=== PATIENT | female | born 1980 | race African-American/Black ===

== ENCOUNTER 2016-12-17 11:44 | Emergency (ER) | payer BC ==
[~2016-12-17] VITALS: Ht 177.8 cm; Wt 127.0 kg
[~2016-12-17 11:44] MED LIST: METF500T4 PO; [UNRECOGNIZED DRUG - CODE] IV
[2016-12-17 13:00] VITALS: BP 138/75
[2016-12-17] MEDS ORDERED: CEFTRIAXONE IM 250 MG VIAL. IM ONE (13:45)
[2016-12-17] MEDS ORDERED: AZITHROMYCIN 250 MG TABLET PO ONE (13:45)
[2016-12-17] MEDS ORDERED: METRONIDAZOLE 500 MG TABLET. PO ONE (13:45)
[2016-12-17 13:59] LABS: NEG OBC UR NEG; POS OBC UR POS
[2016-12-17 14:00] LABS: BILIRUBIN,URINE NEGATIVE (NEG); GLUCOSE,URINE >=1000 mg/dL (NEG); NITRITE,URINE NEGATIVE (NEG); PROTEIN,URINE NEGATIVE (NEG-TRACE); UROBILINOGEN,URINE 0.2 mg/dL (0.2 mg/dL)
[2016-12-17 14:28] LABS: BACTERIA,URINE FEW /HPF (0-FEW); SQUAMOUS EPITHELIAL CELL,UR MOD /LPF; TRICHOMONAS,URINE PRESENT; WBC,URINE >40 /HPF (0-4)
[2016-12-17] MEDS ORDERED: SULF1TAB24 PO (14:37)
[2016-12-17] MEDS ORDERED: METR500T PO (14:37)
[2016-12-17] MEDS ORDERED: FLUC150T2 PO (14:37)
--- NOTE | 2016-12-17 14:37 | PHYS DOC ---
Past Medical History Past Medical History: Diabetes-Type II, Hypertension, Other Additional Past Medical Histor: YEAST INFECTIONS Past Surgical History: Alcohol Use: None Drug Use: None Adult General Chief Complaint Chief Complaint: VAGINAL PROBLEM HPI HPI Patient is a 36 year old female who presents with vaginal discharge for three days with dysuria and concerns for STD. Patient would like to be tested and treated. Review of Systems Review of Systems Constitutional: Denies fever or chills [] Eyes: Denies change in visual acuity, redness, or eye pain [] HENT: Denies nasal congestion or sore throat [] Respiratory: Denies cough or shortness of breath [] Cardiovascular: No additional information not addressed in HPI [] GI: Denies abdominal pain, nausea, vomiting, bloody stools or diarrhea [] : Dysuria and vaginal discharge Musculoskeletal: Denies back pain or joint pain [] Integument: Denies rash or skin lesions [] Neurologic: Denies headache, focal weakness or sensory changes [] Endocrine: Denies polyuria or polydipsia [] Current Medications Current Medications Current Medications Medications (Trade) Dose Ordered Sig/Desirae Start Time Stop Time Status Last Admin Dose Admin Azithromycin (Zithromax) 1,000 mg 1X ONCE 12/17/16 13:45 12/17/16 13:52 DC 12/17/16 13:59 1,000 MG Ceftriaxone Sodium (Rocephin Im) 250 mg 1X ONCE 12/17/16 13:45 12/17/16 13:52 DC 12/17/16 14:01 250 MG Metronidazole (Flagyl) 2,000 mg 1X ONCE 12/17/16 13:45 12/17/16 13:52 DC 12/17/16 13:59 2,000 MG Allergies Allergies Allergies Coded Allergies Type Severity Reaction Last Updated Verified No Known Drug Allergies 07/24/14 No Physical Exam Physical Exam Constitutional: Well developed, well nourished, no acute distress, non-toxic appearance. [] HENT: Normocephalic, atraumatic, bilateral external ears normal, oropharynx moist, no oral exudates, nose normal. [] Eyes: PERRLA, EOMI, conjunctiva normal, no discharge. [] Neck: Normal range of motion, no tenderness, supple, no stridor. [] Cardiovascular:Heart rate regular rhythm, no murmur [] Lungs & Thorax: Bilateral breath sounds clear to auscultation [] Abdomen: Bowel sounds normal, soft, no tenderness, no masses, no pulsatile masses. [] External pelvic appears normal, cervix is closed no CMT, moderate cervical erythema is noted as well as vaginal vault appears erythematous. There is greenish discharge in the vaginal vault. No adnexal tenderness. Skin: Warm, dry, no erythema, no rash. [] Back: No tenderness, no CVA tenderness. [] Extremities: No tenderness, no cyanosis, no clubbing, ROM intact, no edema. [] Neurologic: Alert and oriented X 3, normal motor function, normal sensory function, no focal deficits noted. [] Psychologic: Affect normal, judgement normal, mood normal. [] Current Patient Data Vital Signs Vital Signs Date Time Temp Pulse Resp B/P Pulse Ox O2 Delivery O2 Flow Rate FiO2 12/17/16 13:00 98.5 90 18 98 Room Air 98.5 Lab Values Laboratory Tests Test 12/17/16 13:10 Urine Collection Type Unknown Urine Color Yellow Urine Clarity Cloudy Urine pH 6.0 Urine Specific [place] >=1.030 Urine Protein Negativemg/dL (NEG-TRACE) Urine Glucose (UA) >=1000mg/dL (NEG) Urine Ketones (Stick) Negativemg/dL (NEG) Urine Blood Small (NEG) Urine Nitrite Negative (NEG) Urine Bilirubin Negative (NEG) Urine Urobilinogen Dipstick 0.2mg/dL (0.2 mg/dL) Urine Leukocyte Esterase Large (NEG) Urine RBC 1-2/HPF (0-2) Urine WBC >40/HPF (0-4) Urine Squamous Epithelial Cells Mod/LPF Urine Bacteria Few/HPF (0-FEW) Urine Mucus Slight/LPF Urine Trichomonas Present Urine Test Negative (NEG) Microbiology 12/17/16 Wet Prep - Final, Complete EKG EKG [] Radiology/Procedures Radiology/Procedures [] Course & Med Decision Making Course & Med Decision Making Pertinent Labs and Imaging studies reviewed. (See chart for details) Patient is in the ED with concern for STDs would like to be tested and treated. Negative urine hCG, positive for Trichomonas, positive for BV. Patient was treated with Flagyl Rocephin and azithromycin. Discharged with Bactrim and Flagyl to complete BV treatment. Educated on safe sex practices especially the need to use protection. Discharged in stable condition. Dragon Disclaimer Dragon Disclaimer This electronic medical record was generated, in whole or in part, using a voice recognition dictation system. Departure Departure Impression: Primary Impression: Trichomonas infection Additional Impressions: Urinary tract infection Bacterial vaginosis Disposition: 01 HOME, SELF-CARE Condition: STABLE Referrals: NO PCP (PCP) Follow-up with the health department Patient Instructions: Trichomoniasis Additional Instructions: You tested positive for Trichomonas. This is an STD. Contact all your sex partners, let them know you were treated for STDs, ask them to go get treated too. Use protection at all times. You also have urinary tract infection and bacterial vaginosis. Complete your antibiotics. Scripts Fluconazole 150 Mg [id number] Mg PO DAILY #2 TAB One tablet today repeat in one week Prov:RODOLFO BOWEN APRN 12/17/16 Sulfamethoxazole/Trimethoprim (Bactrim Ds Tablet)1 Each Tablet1 Tab PO BID #14 TAB Prov:RODOLFO BOWEN APRN 12/17/16 Metronidazole (Flagyl)500 Mg Tablet1 Tab PO BID #10 TAB Prov:RODOLFO BOWEN APRN 12/17/16 Problem Qualifiers Additional Impressions: Urinary tract infection Urinary tract infection type: acute cystitis Hematuria presence: without hematuria Qualified Code: N30.00 - Acute cystitis without hematuria RODOLFO BOWEN APRN Dec 17, 2016 14:37
== END 2016-12-17 14:41 | disposition home or self-care (01) ==
LOC: ER 11:44
DX: N30.00 Acute cystitis without hematuria (principal); N76.0 Acute vaginitis; E11.9 Type 2 diabetes mellitus without complications; I10 Essential (primary) hypertension
CPT/HCPCS: 81001; 81025; 96372; 99284; J0696; Q0111; Q0144; 87491; 87591

== ENCOUNTER → 2019-03-04 | Outpatient (CLI) | payer BC ==
[~2019-03-04] MED LIST changes: +FLUC150T2 PO; +METF500T16 PO; -METF500T4 PO; +METR500T PO; +SULF1TAB24 PO
--- NOTE | 2019-03-04 11:31 | RAD ---
AP and Lateral Views of the Chest 03/04/2019 10:55 AM Indication: EXACERBATION OF ASTHMA, SHORT OF BREATH Comparison: None Findings: There is no focal consolidation or infiltrate identified. The cardiomediastinal silhouette is within normal limits. There is no evidence of pneumothorax or pleural effusion. No acute osseous abnormalities are identified. Impression: No evidence of acute cardiopulmonary process. Electronically signed by: Marcos Mota MD (03/04/2019 11:27 AM) [id number]
== END | disposition home or self-care (01) ==
LOC: RAD 10:38
PROVIDERS: ATTEND Internal Medicine Pulmonary Disease
DX: J45.901 Unspecified asthma with (acute) exacerbation (principal)
CPT/HCPCS: 71046